=== PATIENT | female | born 1960 | race Caucasian/White ===

== ENCOUNTER 2016-10-04 12:27 | Emergency (ER) | payer BC | END 2016-10-04 14:15 | disposition home or self-care (01) | LOC: ER 12:27 | DX: J02.9 Acute pharyngitis, unspecified (principal); K21.9 Gastro-esophageal reflux disease without esophagitis; I10 Essential (primary) hypertension; Z79.82 Long term (current) use of aspirin; Z79.899 Other long term (current) drug therapy; Z88.5 Allergy status to narcotic agent; Z88.8 Allergy status to other drugs, medicaments and biological substances | CPT/HCPCS: 36415 ==